=== PATIENT | female | born 1995 | race Caucasian/White ===

== ENCOUNTER 2017-02-16 16:33 | Emergency (ER) | payer OTHER, BC ==
[~2017-02-16] VITALS: Ht 175.3 cm; Wt 76.2 kg
[~2017-02-16 16:33] MED LIST: ALLE30TA3 PO; IBUP1TAB7 PO
[2017-02-16 16:38] VITALS: BP 136/89; PULSE 93; RESP 16; TEMP 98.1; O2SAT 98
[2017-02-16] MEDS ORDERED: AUGM875T3 PO (16:53)
[2017-02-16] MEDS ORDERED: DOXY1CAP74 PO (16:53)
[2017-02-16] MEDS ORDERED: SODIUM CHLORIDE 0.9% FLUSH 10 ML FLUSH IV FLUSH PRN (17:15)
[2017-02-16 17:47] LABS: CHLORIDE 105 MEQ/L (98-107); POTASSIUM 3.6 MEQ/L (3.5-5.1); SODIUM (NA) 138 MEQ/L (136-145)
[2017-02-16 17:48] VITALS: O2SAT 100
[2017-02-16 17:49] LABS: AUTOMATED NEUTROPHIL # 1.7 TH/MM3 (1.8-7.7); BASOPHIL % 1.1 % (0.0-2.0); EOSINOPHIL # 0.1 TH/MM3 (0-0.4); EOSINOPHIL % 2.1 % (0.0-4.0); HEMATOCRIT 40.5 % (35.0-46.0); HEMO FLAGS DIFF FINAL; LYMPH % 44.3 % (9.0-44.0); LYMPHOCYTE # 1.8 TH/MM3 (1.0-4.8); MEAN CELL VOLUME 83.1 FL (80.0-100.0); MEAN CORPUSCULAR HGB CONC 33.7 % (32.0-36.0); MONO % 10.6 % (0.0-8.0); NEUT % 41.9 % (16.0-70.0); PLATELET COUNT 188 TH/MM3 (150-450); RED BLOOD COUNT 4.88 MIL/MM3 (4.00-5.30); RED CELL DISTRIBUTION WIDTH 12.2 % (11.6-17.2)
[2017-02-16 17:50] LABS: ANION GAP 5 MEQ/L (5-15); BICARBONATE 27.7 MEQ/L (21.0-32.0); BLOOD UREA NITROGEN 9 MG/DL (7-18)
[2017-02-16 17:53] LABS: ALT (GPT) 18 U/L (10-53); AST (GOT) 17 U/L (15-37); GLOMERULAR FILTRATION RATE 149 ML/MIN (>89)
[2017-02-16 17:56] LABS: ALKALINE PHOSPHATASE 67 U/L (45-117)
[2017-02-16 17:59] LABS: TOTAL BILIRUBIN ADULT 0.3 MG/DL (0.2-1.0)
[2017-02-16] MEDS ORDERED: IOHEXOL 350 MG/ML 10 ML VIAL (for RAD DIAG) IVCONTRAST ONE (18:24)
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
== END 2017-02-16 18:53 | disposition home or self-care (01) ==
LOC: PHEFT 16:33
DX: R10.12 Left upper quadrant pain (principal); V43.52XA Car driver injured in collision with other type car in traffic accident, initial encounter
CPT/HCPCS: 74177; 80053; 84703; 85025; 99285; Q9967

== ENCOUNTER 2017-06-02 16:56 | Emergency (ER) | payer BC, OTHER ==
[~2017-06-02 16:56] MED LIST changes: -ALLE30TA3 PO; +AUGM875T3 PO; +DOXY1CAP74 PO; -IBUP1TAB7 PO
[2017-06-02 17:15] VITALS: BP 138/87; PULSE 97; RESP 18; TEMP 98.4; O2SAT 100
[2017-06-02 18:47] LABS: AUTOMATED NEUTROPHIL # 8.4 TH/MM3 (1.8-7.7); BASOPHIL % 0.2 % (0.0-2.0); EOSINOPHIL # 0.2 TH/MM3 (0-0.4); HEMATOCRIT 40.5 % (35.0-46.0); LYMPH % 15.6 % (9.0-44.0); LYMPHOCYTE # 1.7 TH/MM3 (1.0-4.8); MEAN CELL VOLUME 83.3 FL (80.0-100.0); MEAN CORPUSCULAR HEMOGLOBIN 28.7 PG (27.0-34.0); MEAN CORPUSCULAR HGB CONC 34.5 % (32.0-36.0); MONO % 5.2 % (0.0-8.0); MONOCYTE # 0.6 TH/MM3 (0-0.9); PLATELET COUNT 212 TH/MM3 (150-450); RED BLOOD COUNT 4.86 MIL/MM3 (4.00-5.30); RED CELL DISTRIBUTION WIDTH 13.7 % (11.6-17.2); WHITE BLOOD COUNT 10.9 TH/MM3 (4.0-11.0)
[2017-06-02 18:51] LABS: INTERNATIONAL NORMALIZED RATIO 0.9 RATIO; PROTHROMBIN TIME - PATIENT 9.6 SEC (9.8-11.6)
[2017-06-02 19:11] LABS: ALBUMIN 4.1 GM/DL (3.4-5.0); AST (GOT) 16 U/L (15-37); BICARBONATE 24.7 MEQ/L (21.0-32.0); BLOOD UREA NITROGEN 10 MG/DL (7-18); CALCIUM 8.9 MG/DL (8.5-10.1); CHLORIDE 106 MEQ/L (98-107); CREATININE 0.68 MG/DL (0.50-1.00); GLOMERULAR FILTRATION RATE 107 ML/MIN (>89); GLUCOSE,RANDOM 90 MG/DL (74-106); MAGNESIUM 2.1 MG/DL (1.5-2.5); SODIUM (NA) 139 MEQ/L (136-145)
[2017-06-02 19:13] LABS: ALT (GPT) 19 U/L (10-53)
[2017-06-02 19:16] LABS: ALKALINE PHOSPHATASE 66 U/L (45-117); TOTAL BILIRUBIN ADULT 0.2 MG/DL (0.2-1.0); TOTAL PROTEIN 7.6 GM/DL (6.4-8.2); TROPONIN I LESS THAN 0.02 NG/ML (0.02-0.05)
[2017-06-02 19:44] LABS: AMORPHOUS SEDIMENT, URINE RARE; BACTERIA, URINE MANY /hpf; BILIRUBIN, URINE NEG (NEG); BLOOD, URINE LARGE (NEG); GLUCOSE,URINE NEG (NEG); KETONE, URINE 10 mg/dL (NEG); MUCUS URINE MANY /lpf (OCC); NITRITE,URINE NEG (NEG); PH, URINE 5.5 (5.0-8.5); SQUAMOUS EPITHELIAL CELL URINE 9 /hpf (0-5); URINE COLOR LIGHT-RED (YELLW/STRAW); URINE LEUKOCYTE ESTERASE SMALL (NEG)
[2017-06-02] MEDS ORDERED: PHEN0.4T PO (19:54)
[2017-06-02] MEDS ORDERED: LEVA750T9 PO (19:54)
--- NOTE | 2017-06-02 19:54 | PD ---
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 She is used to blood she is putting in IVs she works in the ER patient is here awake alert complaining still of superpubic pain history of being on control pills for the last 3 months and she also has a history of having UTIs in the past. [facility] Past Medical History ADD: Yes ADHD: Yes Asthma: Yes Cardiovascular Problems: Yes (STATES HX OF PVCs AND EPISODES OF TACHYCARDIA) Diminished Hearing: No Immunizations Current: Yes Pneumonia: Yes ?: Not LMP: 05/20/17 Past Surgical History Oral Surgery: Yes (WISDOM TEETH REMOVED) Social History Alcohol Use: No Tobacco Use: No Substance Use: No Allergies-Medications (Allergen,Severity, Reaction): Coded Allergies: cat dander (Verified Allergy, Mild, Sneezing, 02/16/17) Reported Meds & Prescriptions Reported Meds & Active Scripts Active Pyridium (Phenazopyridine HCl) 100 Mg Tab 200 Mg PO Q8HR Levaquin (Levofloxacin) 750 Mg Tablet 750 Mg PO DAILY 7 Days Reported Augmentin (Amoxicillin-Clavulanate) 875-125 Mg Tab 1 Tab PO BID Doxycycline 40 Mg Cap 120 Mg PO DAILY Review of Systems Except as stated in HPI: all other systems reviewed are Neg Gastrointestinal: Positive: Abdominal Pain Genitourinary: Positive: Dysuria Neurologic: Positive: Weakness, Dizziness Physical Exam Narrative GENERAL: awake alert OX3 no distress SKIN: Warm and dry. HEAD: Atraumatic. Normocephalic. EYES: Pupils equal and round. No scleral icterus. No injection or drainage. ENT: No nasal bleeding or discharge. Mucous membranes pink and moist. NECK: Trachea midline. No JVD. CARDIOVASCULAR: Regular rate and rhythm. RESPIRATORY: No accessory muscle use. Clear to auscultation. Breath sounds equal bilaterally. GASTROINTESTINAL: Abdomen mild suora tender, nondistended. Hepatic and splenic margins not palpable. MUSCULOSKELETAL: Extremities without clubbing, cyanosis, or edema. No obvious deformities. NEUROLOGICAL: Awake and alert. No obvious cranial nerve deficits. Motor grossly within normal limits. Five out of 5 muscle strength in the arms and legs. Normal speech. PSYCHIATRIC: Appropriate mood and affect; insight and judgment normal. Data Data Last Documented VS Orders Orders Electrocardiogram (06/02/17 17:20) Complete Blood Count With Diff (06/02/17 17:20) Comprehensive Metabolic Panel (06/02/17 17:20) Magnesium (Mg) (06/02/17 17:20) Ckmb (Isoenzyme) Profile (06/02/17 17:20) Troponin I (06/02/17 17:20) Act Partial Throm Time (Ptt) (06/02/17 17:20) Prothrombin Time / Inr (Pt) (06/02/17 17:20) Urinalysis - C+S If Indicated (06/02/17 17:20) Beta Hcg (Quant/Titer) (06/02/17 18:09) Urine Culture (06/02/17 19:10) Levofloxacin (Levaquin) (06/02/17 20:00) Phenazopyridine (Pyridium) (06/02/17 20:00) Ed Discharge Order (06/02/17 20:50) Labs Laboratory Tests Test 06/02/17 18:10 06/02/17 19:10 White Blood Count 10.9 TH/MM3 Red Blood Count 4.86 MIL/MM3 Hemoglobin 14.0 GM/DL Hematocrit 40.5 % Mean Corpuscular Volume 83.3 FL Mean Corpuscular Hemoglobin 28.7 PG Mean Corpuscular Hemoglobin Concent 34.5 % Red Cell Distribution Width 13.7 % Platelet Count 212 TH/MM3 Mean Platelet Volume 9.0 FL Neutrophils (%) (Auto) 77.0 % Lymphocytes (%) (Auto) 15.6 % Monocytes (%) (Auto) 5.2 % Eosinophils (%) (Auto) 2.0 % Basophils (%) (Auto) 0.2 % Neutrophils # (Auto) 8.4 TH/MM3 Lymphocytes # (Auto) 1.7 TH/MM3 Monocytes # (Auto) 0.6 TH/MM3 Eosinophils # (Auto) 0.2 TH/MM3 Basophils # (Auto) 0.0 TH/MM3 CBC Comment DIFF FINAL Differential Comment Prothrombin Time 9.6 SEC Prothromb Time International Ratio 0.9 RATIO Activated Partial Thromboplast Time 22.9 SEC Blood Urea Nitrogen 10 MG/DL Creatinine 0.68 MG/DL Random Glucose 90 MG/DL Total Protein 7.6 GM/DL Albumin 4.1 GM/DL Calcium Level 8.9 MG/DL Magnesium Level 2.1 MG/DL Alkaline Phosphatase 66 U/L Aspartate Amino Transf (AST/SGOT) 16 U/L Alanine Aminotransferase (ALT/SGPT) 19 U/L Total Bilirubin 0.2 MG/DL Sodium Level 139 MEQ/L Potassium Level 4.1 MEQ/L Chloride Level 106 MEQ/L Carbon Dioxide Level 24.7 MEQ/L Anion Gap 8 MEQ/L Estimat Glomerular Filtration Rate 107 ML/MIN Total Creatine Kinase 74 U/L Troponin I LESS THAN 0.02 NG/ML Human Chorionic Gonadotropin, Quant LESS THAN 1 MIU/ML Urine Color LIGHT-RED Urine Turbidity HAZY Urine pH 5.5 Urine Specific [place] 1.037 Urine Protein 100 mg/dL Urine Glucose (UA) NEG mg/dL Urine Ketones 10 mg/dL Urine Occult Blood LARGE Urine Nitrite NEG Urine Bilirubin NEG Urine Urobilinogen LESS THAN 2.0 MG/DL Urine Leukocyte Esterase SMALL Urine RBC /hpf Urine WBC 129 /hpf Urine Squamous Epithelial Cells 9 /hpf Urine Amorphous Sediment RARE Urine Bacteria MANY /hpf Urine Mucus MANY /lpf Microscopic Urinalysis Comment CULTURE INDICATED MDM Medical Decision Making Medical Screen Exam Complete: Yes Emergency Medical Condition: Yes Differential Diagnosis vasovagal vs pain reaction near syncope vs UTI urosepsis neurocadiogenic near syncope other Narrative Course Urine has many WBC and RBC and UTI is treated Levaquin and d/c close follow up levaquin x 5 days Diagnosis Primary Impression: Urinary tract infection Qualified Codes: N30.01 - Acute cystitis with hematuria Patient Instructions: General Instructions, Urinary Tract Infection in Women ( ED) Scripts Phenazopyridine (Pyridium) 100 Mg Tab 200 MG PO Q8HR for Dysuria, #6 TAB 0 Refills Prov: Jem Nelson MD 06/02/17 Levofloxacin (Levaquin) 750 Mg Tablet 750 MG PO DAILY for Infection for 7 Days, #7 TAB 0 Refills Prov: Jem Nelson MD 06/02/17 Disposition: 01 DISCHARGE HOME Condition: Good Jem Nelson MD Jun 02, 2017 19:54
[2017-06-02] MEDS ORDERED: LEVOFLOXACIN 750 MG TAB PO ONE (20:00)
[2017-06-02] MEDS ORDERED: PHENAZOPYRIDINE HCL 200 MG TAB PO ONE (20:00)
[2017-06-02 20:39] VITALS: BP 133/74; PULSE 90; RESP 16; O2SAT 98
--- NOTE | 2017-06-03 21:32 | EKG ---
Date Performed: 06/02/2017 Time Performed: 19:05:29 PTAGE: 22 years EKG: Sinus rhythm NORMAL ECG NO PREVIOUS TRACING DOCTOR: Quincy Dietrich Interpretating Date/Time 06/03/2017 21:31:41
== END 2017-06-02 21:09 | disposition home or self-care (01) ==
LOC: NEPE 16:56
DX: N39.0 Urinary tract infection, site not specified (principal); R00.0 Tachycardia, unspecified; B96.89 Other specified bacterial agents as the cause of diseases classified elsewhere
CPT/HCPCS: 80053; 81001; 82550; 83735; 84484; 84702; 85025; 85610; 85730; 87086; 93005